=== PATIENT | female | born 1955 | race Caucasian/White ===

== ENCOUNTER 2017-07-17 10:16 | Outpatient (CLI) | payer OTHER ==
--- NOTE | 2017-07-17 12:56 | XRAY Report ---
COMPLETE CERVICAL SPINE: 07/17/2017 CLINICAL INDICATION: Pain, trauma. FINDINGS: AP, lateral, oblique, odontoid views of the cervical spine demonstrate degenerative disk and facet disease, with disk space narrowing worst at C3-4. No significant osseous neural foraminal narrowing is present. The prevertebral soft tissues are unremarkable. IMPRESSION: MILD DEGENERATIVE CHANGES, WORST AT C3-4. NO EVIDENCE OF FRACTURE. TD: 07/17/2017 12:55
--- NOTE | 2017-07-17 12:58 | XRAY Report ---
THREE VIEW RIGHT GREAT TOE: 07/17/2017 CLINICAL INDICATION: History of injury, pain. FINDINGS: AP, lateral, oblique views of the right great toe demonstrate moderate osteoarthritis of the first metatarsophalangeal joint. There is no evidence of acute fracture or dislocation. No foreign body is seen in the soft tissues. IMPRESSION: MODERATE OSTEOARTHRITIS. TD: 07/17/2017 12:57
== END 2017-07-17 10:17 | disposition home or self-care (01) ==
LOC: DI 10:16
PROVIDERS: ATTEND Physician Assistant
DX: M19.071 Primary osteoarthritis, right ankle and foot (principal); M50.30 Other cervical disc degeneration, unspecified cervical region; M47.9 Spondylosis, unspecified
CPT/HCPCS: 72050; 73660

== ENCOUNTER 2017-08-07 12:50 | Outpatient (CLI) | payer OTHER ==
--- NOTE | 2017-08-08 15:49 | Mammography Report ---
DIGITAL SCREENING MAMMOGRAM: 08/07/2017 CLINICAL INDICATION: A 61-year-old for screening. COMPARISON: The patient reports having had previous mammograms in [place], but images are not yet available for direct comparison. If they become available, an addendum will be issued. Otherwise, this will serve as a new baseline. TECHNIQUE: Routine CC and MLO projections were obtained of the breasts. FINDINGS: The breasts demonstrate scattered fibroglandular densities bilaterally. Coarse and punctate, typically benign calcifications are present. Small intramammary lymph nodes are noted in the right upper outer quadrant. No suspicious masses, clustered microcalcifications, or regions of architectural distortion are identified. IMPRESSION: BENIGN FINDINGS. RECOMMENDATION: Routine annual screening unless otherwise clinically indicated. BIRADS CATEGORY 2 - BENIGN FINDINGS. STANDARD QUALIFYING STATEMENTS 1. This examination was reviewed with the aid of Computer-Aided Detection (CAD). 2. A negative or benign imaging report should not delay biopsy if clinically suspicious findings are present. Consider surgical consultation if warranted. More than 5% of cancers are not identified by imaging. 3. Dense breasts may obscure an underlying neoplasm. TD: 08/08/2017 13:15
== END 2017-08-07 12:51 | disposition home or self-care (01) ==
LOC: DI 12:50
PROVIDERS: ATTEND Physician Assistant
DX: Z12.31 Encounter for screening mammogram for malignant neoplasm of breast (principal)
CPT/HCPCS: 77067

== ENCOUNTER 2017-08-19 12:59 | Outpatient (CLI) | payer OTHER ==
--- NOTE | 2017-08-20 04:45 | MRI Report ---
EXAM: MRI CERVICAL SPINE WITHOUT CONTRAST EXAM DATE: 08/19/2017 02:18 PM. CLINICAL HISTORY: Neck pain. Bilateral upper extremity numbness. COMPARISONS: Cervical spine x-ray 07/17/2017.. TECHNIQUE: Multiplanar, multisequence T1-weighted and fluid-sensitive sequences of the cervical spine without contrast. Other: None. FINDINGS: Neurologic Structures: The visualized posterior fossa structures are unremarkable. No signal abnormal ity in the visualized spinal cord. Alignment: No scoliosis or spondylolisthesis. Bone Marrow: No gross fractures or bone lesions. There is mild Modic type I degenerative endplate chet nge at C3-C4. Marrow signal is otherwise normal. Interspace Levels/Facets: C1-C2: Unremarkable. C2-C3: Mild disk desiccation. Otherwise unremarkable. C3-C4: There is anterior endplate spurring and moderate disk narrowing and desiccation. Posterior oss eous ridging and disk bulging flattens the ventral cord surface. Central canal is moderately narrowed measuring 7-8 mm in AP dimension in the midline. Uncovertebral and facet hypertrophy causes moderate bilateral foraminal stenosis. C4-C5: Mild anterior spurring and disk desiccation is present. A mild disk bulge slightly indents the ventral cord surface. No significant canal or foraminal stenosis. C5-C6: Anterior spurring and mild disk narrowing and desiccation. There is mild posterior spurring an d disk bulging effacing the ventral thecal sac. No cord compression or significant central canal sten osis. Uncovertebral and facet hypertrophy causes chyn-ew-cutjdkyd bilateral foraminal stenosis. C6-C7: Anterior spurring and cfet-ip-pxlrocbr disk narrowing and desiccation. There is mild disk bulg ing. No cord compression or significant canal stenosis. Uncinate spurring produces mild bilateral for aminal stenosis. C7-T1: Mild disk narrowing and desiccation. There is a left posterior-lateral disk osteophyte complex measuring 2.5 mm in AP extent. This slightly indents the ventral cord surface on the left. There is moderate narrowing of the left neural foramen. There is no significant central canal or right foramin al stenosis. Musculature: Unremarkable. Other: The paravertebral and prevertebral soft tissues are normal. IMPRESSION: 1. Multilevel cervical spondylosis and degenerative disk disease as detailed above. 2. At C3-C4, spondylosis and disk bulging produces moderate central canal stenosis and bilateral neur al foramen stenosis. Posterior osseous ridging and disk bulging causes mild to moderate cord flatteni ng. 3. At C4-C5, a generalized disk bulge slightly indents the ventral cord surface. No significant canal or foraminal stenosis. 4. At C5-C6 there is jizn-le-ezxuowkq bilateral foraminal stenosis. At C6-C7, there is mild bilateral foraminal stenosis due to spondylosis. 5. At C7-T1, a left posterior-lateral disk osteophyte complex slightly indents the ventral cord surfa ce. Left-sided uncinate spurring produces moderate left foraminal stenosis. 6. The cervical cord is normal in signal at all levels. [facility] Referring Provider Line: [phone] SITE ID: [id number]
== END 2017-08-19 13:00 | disposition home or self-care (01) ==
LOC: DI 12:59
PROVIDERS: ATTEND Physician Assistant
DX: M47.892 Other spondylosis, cervical region (principal); M50.31 Other cervical disc degeneration, high cervical region
CPT/HCPCS: 72141

== ENCOUNTER 2018-11-21 11:51 | Outpatient (CLI) | payer OTHER ==
[2018-11-21 12:07] LABS: BASOPHILS % (AUTO) 0.3 %; HGB - HEMOGLOBIN 14.9 g/dL (12.0-16.0); LYMPHOCYTES % (AUTO) 27.9 %; MEAN CORPUSCULAR HEMOGLOBIN 27.3 pg (27.0-31.0); MEAN CORPUSCULAR HGB CONC 31.4 g/dL (32.0-36.0); MEAN CORPUSCULAR VOLUME 86.8 fL (81.0-99.0); MEAN PLATELET VOLUME 10.9 fL (7.9-10.8); MONOCYTES # (AUTO) 0.4 10^3/uL (0.0-1.0); NEUTROPHILS # (AUTO) 4.8 10^3/uL (1.5-6.6); NEUTROPHILS % (AUTO) 65.4 %; PLT - PLATELET COUNT 168 10^3/uL (130-450); RED BLOOD COUNT 5.46 10^6/uL (4.20-5.40); RED CELL DISTRIBUTION WIDTH 14.6 % (12.0-15.0); WHITE BLOOD COUNT 7.3 x10^3/uL (4.8-10.8)
[2018-11-21 12:32] LABS: ALBUMIN 4.1 g/dL (3.2-5.5); ALBUMIN/GLOBULIN RATIO 1.2 (1.0-2.2); ALKALINE PHOSPHATASE 70 IU/L (42-121); ALT ALANINE AMINOTRANSFERASE 22 IU/L (10-60); AST ASPARTATE AMINOTRANSFERASE 19 IU/L (10-42); BILIRUBIN,TOTAL 0.7 mg/dL (0.2-1.0); BUN - BLOOD UREA NITROGEN 16 mg/dL (6-20); CALCIUM 9.1 mg/dL (8.5-10.3); CARBON DIOXIDE - CO2 27 mmol/L (21-32); CHLORIDE 107 mmol/L (101-111); CHOL/HDL RATIO 5.3 (<4.4); CHOLESTEROL 235 mg/dL; CREATININE 0.7 mg/dL (0.4-1.0); GFR - MDRD 84 (>89); GLUCOSE 129 mg/dL (70-100); HDL CHOLESTEROL 44 mg/dL; LDL CHOLESTEROL,CALCULATED 163 mg/dL; LDL/HDL RATIO 3.7 (<4.4); SODIUM 143 mmol/L (135-145); TOTAL PROTEIN 7.4 g/dL (6.7-8.2); VLDL CHOLESTEROL 28 mg/dL
== END 2018-11-21 11:52 | disposition home or self-care (01) ==
LOC: LAB 11:51
PROVIDERS: ATTEND Physician Assistant
DX: I10 Essential (primary) hypertension (principal); R13.19 Other dysphagia; E78.2 Mixed hyperlipidemia
CPT/HCPCS: 36415; 80053; 80061; 83721; 85025

== ENCOUNTER 2018-11-21 12:01 | Outpatient (CLI) | payer OTHER ==
--- NOTE | 2018-11-26 15:05 | Mammography Report ---
Reason: ENCOUNTER FOR SCREENING MAMMOGRAM FOR MALIGNANT NE Procedure Date: 11/21/2018 Accession Number: [id number] / [id number] Procedure: MAGALY - Screening Mammo w/Naatoly CPT Code: FULL RESULT: EXAM: Screening Mammo w/Anatoly DATE: 11/21/2018 1:10 PM CLINICAL HISTORY: Screening examination. No reported risk factors. TECHNIQUE: (B) - Bilateral CC and MLO views were obtained. COMPARISON: 08/07/2017. PARENCHYMAL PATTERN: (A) - The breast(s) demonstrate(s) scattered fibroglandular densities. FINDINGS: There are coarse typically benign calcifications. In the right upper outer breast 4.4 cm from the nipple as seen on the 3-D right MLO image 10 and the 3-D right CC image 26 is a 0.5 cm well-circumscribed isodense dense centrally lucent nodule which is stable compared to 2018, 3-D features to suggest fatty hilum. This probably represents a typically benign internal mammary lymph node, but two-year stability is not established with the single comparison study. Therefore, clarification of the finding by ultrasound is required. There are no suspicious masses, calcifications, or areas of distortion in the left breast. IMPRESSION: Incomplete examination. BI-RADS category 0. RECOMMENDATION: (ADDUS) - Targeted ultrasound recommended. Right breast. BI-RADS CATEGORY: (0) - Incomplete Examination - need additional evaluation. STANDARD QUALIFYING STATEMENTS: 1. This examination was not reviewed with the aid of Computer-Aided Detection (CAD). 2. A negative or benign imaging report should not preclude biopsy if clinically suspicious findings are present. 3. Dense breasts may obscure an underlying neoplasm. 4. This examination was reviewed with the aid of 3D breast imaging (tomosynthesis).
== END 2018-11-21 12:02 | disposition home or self-care (01) ==
LOC: DI 12:01
PROVIDERS: ATTEND Physician Assistant
DX: Z12.31 Encounter for screening mammogram for malignant neoplasm of breast (principal)
CPT/HCPCS: 77063; 77067

== ENCOUNTER 2018-11-27 08:00 | Outpatient (CLI) | payer OTHER ==
[2018-11-27 07:27] LABS: HB2 TOTAL 15.1 g/dL; HEMOGLOBIN A1C 0.64 g/dL
== END 2018-11-27 23:59 | disposition home or self-care (01) ==
LOC: LAB 08:00
PROVIDERS: ATTEND Physician Assistant
DX: Z13.1 Encounter for screening for diabetes mellitus (principal)
CPT/HCPCS: 83036

== ENCOUNTER 2018-12-11 13:16 | Outpatient (CLI) | payer OTHER ==
--- NOTE | 2018-12-11 15:41 | Ultrasound Report ---
Reason: ABNORMAL MAMMOGRAM Procedure Date: 12/11/2018 Accession Number: [id number] / [id number] Procedure: US - Breast Unilateral Limited CPT Code: FULL RESULT: EXAM: Breast Unilateral Limited DATE: 12/11/2018 2:30 PM CLINICAL HISTORY: ABNORMAL MAMMOGRAM COMPARISON: 11/21/2018 and 08/07/2017. TECHNIQUE: Targeted ultrasound was performed of the right breast in the area of clinical concern at 10 o'clock and 4 distance from the nipple. Color Doppler was employed as appropriate. FINDINGS: The mammographic finding is sonographically identified as a typically benign appearing lymph node with preserved fatty hilum and vascular flow within the hilum by limited color Doppler which measures up to 0.6 x 0.3 x 0.4 cm. No suspicious mass is identified. IMPRESSION: Benign findings RECOMMENDATION: Annual screening mammography unless otherwise indicated clinically. BIRADS CATEGORY 2: Benign findings [facility]
== END 2018-12-11 13:17 | disposition home or self-care (01) ==
LOC: DI 13:16
PROVIDERS: ATTEND Physician Assistant
DX: R92.2 Inconclusive mammogram (principal)
CPT/HCPCS: 76642

== ENCOUNTER 2019-01-16 06:00 | Day surgery (SDC) | payer OTHER ==
[2019-01-16] MEDS ORDERED: LACTATED RINGERS 1,000 ML IV ONE (06:26)
[2019-01-16] MEDS ORDERED: LIDO GARGLE 30 ML BOTTLE ONE (08:23)
[2019-01-16] MEDS ORDERED: LIDO GARGLE 30 ML BOTTLE PO ONE (08:34)
[2019-01-16] MEDS ORDERED: ONDANSETRON 4 MG/2 ML VIAL ONE (09:03)
[2019-01-16 09:41] VITALS: BP 134/74
== END 2019-01-16 06:01 | disposition home or self-care (01) ==
LOC: SDS 06:00
PROVIDERS: ATTEND Surgery
PROC: 0DB78ZX Excision of Stomach, Pylorus, Via Natural or Artificial Opening Endoscopic, Diagnostic (ICD-10-PCS; 2019-01-16)
PROC: 0DB58ZX Excision of Esophagus, Via Natural or Artificial Opening Endoscopic, Diagnostic (ICD-10-PCS; 2019-01-16)
PROC: 0DB98ZX Excision of Duodenum, Via Natural or Artificial Opening Endoscopic, Diagnostic (ICD-10-PCS; principal; 2019-01-16 08:00)
DX: R13.10 Dysphagia, unspecified (principal); K21.9 Gastro-esophageal reflux disease without esophagitis; I10 Essential (primary) hypertension; K29.50 Unspecified chronic gastritis without bleeding; R12 Heartburn
CPT/HCPCS: 43239; A9270; J7120

== ENCOUNTER 2022-03-27 06:42 | Emergency (ER) | payer MEDICARE, OTHER ==
[2022-03-27 06:59] VITALS: BP 150/87
[2022-03-27] MEDS ORDERED: CYCLOBENZAPRINE 10 MG TABLET PO STA (07:40)
[2022-03-27] MEDS ORDERED: LIDOCAINE PATCH 5% TOP STA (07:40)
[2022-03-27] MEDS ORDERED: KETOROLAC 60 MG/2 ML VIAL IM STA (07:40)
--- NOTE | 2022-03-27 08:08 | ED Physician Documentation ---
History of Present Illness - Stated complaint Stated Complaint: BACK PX - Chief complaint Chief Complaint: Back Pain - History obtained from History obtained from: Patient - Additonal information Additional information: Patient is a 66-year-old female presenting for evaluation of upper neck and bilateral shoulder pain That has been present for 3 weeks but worsening over the last several days. Patient reports 3 weeks ago she was removing tree branches and pulling up with her arms and had pain to her left shoulder. She went to see her chiropractor earlier this week who felt that it was out of place and Helped realign it. There was no neck manipulation or sudden movements. Patient reports now also having pain into her right shoulder and having difficulty raising it above Her head. She did fall 2 weeks ago onto the right shoulder as she was babying her left. She denies head injury. She denies previous neck problems. She denies numbness or weakness.She reports having chest pain for 3 w eeks that also feels tight and worse with movements Of her arms.She denies difficulty breathing. She denies pain in the abdomen or lower back.She has a history of high cholesterol but denies hypertension or diabetes. Review of Systems Constitutional: denies: Fever Nose: denies: Congestion Cardiac: reports: Chest pain / pressure Respiratory: denies: Dyspnea GI: denies: Abdominal Pain : denies: Dysuria Musculoskeletal: reports: Neck pain, Joint pain Neurologic: denies: Headache PD PAST MEDICAL HISTORY - Past Medical History Cardiovascular: None Respiratory: None Endocrine/Autoimmune: None GI: None : None HEENT: None Psych: None Musculoskeletal: None Derm: None - Past Surgical History General: Appendectomy, Colonoscopy, EGD - Present Medications Home Medications: Ambulatory Orders Medication Instructions Recorded Confirmed Cyclobenzaprine [Flexeril] 10 mg PO TID PRN #20 tablet 03/27/22 - Allergies Allergies/Adverse Reactions: Allergies Allergy/AdvReac Type Severity Reaction Status Date / Time No Known Drug Allergies Allergy Verified 03/27/22 06:59 PD ED PE NORMAL - General General: Alert and oriented X 3, No acute distress, Well developed/nourished - HEENT HEENT: Atraumatic - Neck Neck: Supple, no meningeal sign, No bony TTP, C-Spine cleared by NEXUS criteria - Cardiac Cardiac: RRR, Strong equal pulses - Respiratory Respiratory: No respiratory distress, Clear bilaterally - Abdomen Abdomen: Soft, Non tender - Derm Derm: Warm and dry - Extremities Extremities: No deformity, Other (Radial pulses intact, Pain with raising right arm above 90 degrees and worse with adduction at shoulder; Able to touch opposite shoulders with each hand; No clavicle tenderness, normal range of motion with left shoulder) - Neuro Neuro: Alert and oriented X 3, No motor deficit, No sensory deficit, Normal speech Results - Vitals Vitals: Vital Signs - 24 hr 03/27/22 06:55 Temperature 36.4 C L Heart Rate 76 Respiratory 18 Rate Blood Pressure 150/87 H O2 Saturation 100 Oxygen O2 Source Room air - EKG (time done) 0757 Rate: Rate (enter#) (66) Rhythm: NSR Ischemia: No: ST elevation c/w ischemia Compare to prior EKG: Old EKG unavailable PD MEDICAL DECISION MAKING - ED course Complexity details: reviewed results, re-evaluated patient ED course: Patient is presenting for evaluation of upper back pain and setting of recent trauma. Has visible tightness to muscles of upper back. Has mild range of motion limitations to right shoulder with no visible deformities. X-rays of bilateral shoulders are negative for fracture or dislocation. EKG was obtained Given patient's age and locations of pain which demonstrates a sinus rhythm. I feel ACS is very unlikely as pain is seems musculoskeletal on exam and patient has known mechanisms for injury. Patient is feeling better with medications here. Patient counseled on continuing with supportive care as well as concerning symptoms to return for. Departure - Departure Disposition: 01 Home, Self Care Clinical Impression: Right shoulder strain Qualifiers: Encounter type: initial encounter Qualified Code(s): S46.911A - Strain of unspecified muscle, fascia and tendon at shoulder and upper arm level, right arm, initial encounter Upper back strain Qualifiers: Encounter type: initial encounter Qualified Code(s): S29.012A - Strain of muscle and tendon of back wall of thorax, initial encounter Condition: Stable Instructions: ED Spasm Muscle, ED Sprain Shoulder Prescriptions: Cyclobenzaprine [Flexeril] 10 mg PO TID PRN #20 tablet PRN Reason: Spasms Comments: Your x-rays do not show a broken or out of place bone but you do have degenerative changes in your shoulder joints. I have sent a prescription for a muscle relaxer to [facility] in [place]. Please use this medication along with anti-inflammatories and lidocaine patches as needed for pain. I would also recommend ice or heat. If your pain is not getting better then please make a follow-up appointment with your primary care doctor as you may need further testing such as an MRI. If you have any worsening symptoms such as increased pa in in your chest or new pain please consider return to the ER. Discharge Date/Time: 03/27/22 09:29
--- NOTE | 2022-03-27 08:38 | XRAY Report ---
PROCEDURE: Chest 1 View X-Ray INDICATIONS: pain TECHNIQUE: One view of the chest was acquired. COMPARISON: Correlation is made with the accompanying shoulder plain films, 03/27/2022. FINDINGS: Surgical changes and devices: None. Lungs and pleura: No pleural effusions or pneumothorax. Lungs are clear. Mediastinum: Mediastinal contours appear normal. Heart size is normal. Bones and chest wall: No suspicious bony lesions. Overlying soft tissues appear unremarkable. IMPRESSION: Portable chest within normal limits for age. Reviewed by: Emeka Ross MD on 03/27/2022 7:[address] [facility] Approved by: Emeka Ross MD on 03/27/2022 7:[address] [facility] Station ID: [id number]
--- NOTE | 2022-03-27 08:39 | XRAY Report ---
PROCEDURE: Shoulder 3 View BILAT INDICATIONS: fall/pain TECHNIQUE: 3 views of each shoulder were acquired. COMPARISON: Correlation is made with the accompanying chest radiograph, 03/27/2022 FINDINGS: Bones: No fractures or dislocations. No suspicious bony lesions. Visualized ribs appear intact. M ild generalized degenerative changes are seen, including mild subacromial spurring, left worse than r ight. Soft tissues: No suspicious soft tissue calcifications. The visualized lungs are within normal limi ts. IMPRESSION: There are mild degenerative changes seen on these plain films. If it would be helpful for clinical management decision making, please consider a dedicated, schedule d shoulder MRI for further evaluation (assuming that there is no contraindication). Reviewed by: Emeka Ross MD on 03/27/2022 7:38 AM [facility] Approved by: Emeka Ross MD on 03/27/2022 7:38 AM [facility] Station ID: [id number]
== END 2022-03-27 09:29 | disposition home or self-care (01) ==
LOC: ED 06:42
DX: S46.911A Strain of unspecified muscle, fascia and tendon at shoulder and upper arm level, right arm, initial encounter (principal); S29.012A Strain of muscle and tendon of back wall of thorax, initial encounter; X50.9XXA Other and unspecified overexertion or strenuous movements or postures, initial encounter; Y93.H2 Activity, gardening and landscaping; Y92.009 Unspecified place in unspecified non-institutional (private) residence as the place of occurrence of the external cause
CPT/HCPCS: 71045; 73030; 93005; 99283; 99284; A9270